=== PATIENT | male | born 1950 | race African-American/Black ===

== ENCOUNTER 2018-10-14 12:38 | Inpatient (IN) | payer OTHER ==
[~2018-10-14] VITALS: Ht 182.9 cm; Wt 117.9 kg
[2018-10-14 13:32] LABS: BASOPHILS % 0.4 % (0.0-2.0); EOSINOPHILS % 4.5 % (0.0-5.0); HEMATOCRIT. 47.9 % (42.0-52.0); HEMOGLOBIN. 15.7 g/dL (14.0-18.0); MEAN CORPUSCULAR HEMOGLOBIN 30.3 pg (28.0-32.0); MEAN CORPUSCULAR VOLUME 92.3 fL (80.0-94.0); MEAN PLATELET VOLUME 8.4 fl (7.4-10.4); MONOCYTES % 13.3 % (2.0-8.0); NEUTROPHILS % 41.8 % (40.0-76.0); PLATELET 253 x1000/uL (130-400); RED BLOOD CELL COUNT 5.19 mill/uL (4.7-6.1); RED CELL DISTRIBUTION WIDTH 15.1 % (11.6-14.6)
[2018-10-14 13:38] LABS: CHLORIDE 106 mEq/L (98-107)
[2018-10-14 13:39] LABS: INR 1.1; PROTHROMBIN TIME 10.7 sec (9.1-11.1)
[2018-10-14] MEDS ORDERED: ASPIRIN 81MG TABLET PO NR (14:15)
[2018-10-15] MEDS ORDERED: CLONIDINE 0.1MG TABLET PO SCH ×2 (15:45→22:00)
[2018-10-15] MEDS ORDERED: IPRATROPIUM/ALBUTEROL 0.5-3(2.5)MG/3ML NEB INH PRN (16:15)
[2018-10-15] MEDS ORDERED: HYDROCODONE/ACETAMINOPHEN 5/325MG TABLET PO PRN (16:15)
[2018-10-15] MEDS ORDERED: CLONIDINE 0.1MG TABLET PO PRN (16:15)
[2018-10-15] MEDS ORDERED: ONDANSETRON HCL 4MG/2ML INJ IV PRN (16:15)
[2018-10-15] MEDS ORDERED: ACETAMINOPHEN 325MG TABLET PO PRN (16:15)
[2018-10-15] MEDS: LOSARTAN POTASSIUM 50 MG TABLET PO SCH (17:19)
[2018-10-15] MEDS: ENOXAPARIN 30MG/0.3ML SYR SUBCUT SCH (17:19)
[2018-10-15 20:00] VITALS: BP_SYST 184; BP_SYST 190; BP_DIAS 111; BP_DIAS 150
[2018-10-15 20:37] VITALS: BP 163/103
[2018-10-16] VITALS: BP 148/86
[2018-10-16 04:00] VITALS: BP 117/44
[2018-10-16 06:52] LABS: BASOPHILS % 0.4 % (0.0-2.0); EOSINOPHILS % 4.6 % (0.0-5.0); HEMATOCRIT. 44.1 % (42.0-52.0); HEMOGLOBIN. 14.6 g/dL (14.0-18.0); LYMPHOCYTES % 45.6 % (20.0-50.0); MEAN CORPUSCULAR HEMOGLOBIN 30.6 pg (28.0-32.0); MEAN CORPUSCULAR VOLUME 92.5 fL (80.0-94.0); MEAN PLATELET VOLUME 8.5 fl (7.4-10.4); MONOCYTES % 11.8 % (2.0-8.0); NEUTROPHILS % 37.6 % (40.0-76.0); PLATELET 213 x1000/uL (130-400); RED BLOOD CELL COUNT 4.77 mill/uL (4.7-6.1); RED CELL DISTRIBUTION WIDTH 14.6 % (11.6-14.6)
[2018-10-16 06:59] LABS: CHLORIDE 108 mEq/L (98-107)
[2018-10-16 07:17] LABS: HDL CHOLESTEROL 31 mg/dL (40-59)
[2018-10-16 07:19] LABS: CREATINE KINASE 433 IU/L (39-308); LDL CHOLESTEROL 142 mg/dL (5-100); T4 FREE 0.84 ng/dL (0.76-1.46)
[2018-10-16 08:00] VITALS: BP 157/102
[2018-10-16] MEDS: ENOXAPARIN 30MG/0.3ML SYR SUBCUT SCH ×2 (09:12→20:31)
[2018-10-16] MEDS: LOSARTAN POTASSIUM 50 MG TABLET PO SCH (09:12)
[2018-10-16] MEDS: ASPIRIN 81MG EC TABLET PO SCH (09:12)
[2018-10-16 12:00] VITALS: BP 161/89
[2018-10-16] MEDS: CLONIDINE 0.2MG TABLET PO PRN ×2 (12:15→20:28)
[2018-10-16] MEDS ORDERED: REGADENOSON 0.4 MG/5 ML IV ONE (14:15)
[2018-10-16] MEDS: METOPROLOL TARTRATE 25MG TABLET PO SCH ×2 (14:42→23:56)
[2018-10-16 16:21] VITALS: BP 140/95
[2018-10-16 16:41] LABS: *AMPHETAMINES SCREEN URINE NEGATIVE (NEGATIVE); *BARBITURATES SCREEN URINE NEGATIVE (NEGATIVE); *BENZODIAZEPINES SCREEN URINE NEGATIVE (NEGATIVE); *COCAINE SCREEN URINE NEGATIVE (NEGATIVE); METHADONE URINE SCREEN NEGATIVE (NEGATIVE)
[2018-10-16 16:42] LABS: CANNABINOID URINE SCREEN NEGATIVE (NEGATIVE); OPIATES URINE SCREEN NEGATIVE (NEGATIVE); PHENCYCLIDINE URINE SCREEN NEGATIVE (NEGATIVE)
[2018-10-16 20:00] VITALS: BP 162/97
[2018-10-16] MEDS ORDERED: ATORVASTATIN CALCIUM 20MG TABLET PO SCH (21:00)
[2018-10-17] VITALS: BP 145/94
[2018-10-17] MEDS ORDERED: DEXT 5%/0.45% NACL 1000ML 1,000 ML IV SCH
[2018-10-17 04:00] VITALS: BP 137/99
[2018-10-17 06:28] LABS: BASOPHILS % 0.4 % (0.0-2.0); EOSINOPHILS % 4.2 % (0.0-5.0); HEMATOCRIT. 45.4 % (42.0-52.0); LYMPHOCYTES % 44.9 % (20.0-50.0); MEAN CORPUSCULAR HEMOGLOBIN 30.7 pg (28.0-32.0); MEAN CORPUSCULAR VOLUME 92.9 fL (80.0-94.0); MONOCYTES % 10.6 % (2.0-8.0); NEUTROPHILS % 39.9 % (40.0-76.0); PLATELET 215 x1000/uL (130-400); RED BLOOD CELL COUNT 4.89 mill/uL (4.7-6.1); RED CELL DISTRIBUTION WIDTH 14.8 % (11.6-14.6)
[2018-10-17 07:43] LABS: CHLORIDE 106 mEq/L (98-107)
[2018-10-17] MEDS: ASPIRIN 81MG EC TABLET PO SCH ×2 (07:52→10:31)
[2018-10-17] MEDS: METOPROLOL TARTRATE 25MG TABLET PO SCH ×2 (07:52→10:30)
[2018-10-17] MEDS: LOSARTAN POTASSIUM 50 MG TABLET PO SCH ×2 (07:53→10:30)
[2018-10-17 08:00] VITALS: BP 150/92
[2018-10-17] MEDS ORDERED: REGADENOSON 0.4 MG/5 ML IV ONE (08:51)
[2018-10-17] MEDS: ENOXAPARIN 30MG/0.3ML SYR SUBCUT SCH (10:31)
[2018-10-17 12:00] VITALS: BP 149/95
[2018-10-17 12:37] VITALS: BP 149/95
== END 2018-10-17 13:25 | disposition home or self-care (01) | DRG 280 ==
LOC: ER 12:38 → ENRESERV 10-15 13:29 → 8WST 10-15 14:37
PROVIDERS: ADMIT Internal Medicine; ATTEND Internal Medicine
DX: I21.4 Non-ST elevation (NSTEMI) myocardial infarction (principal); I50.33 Acute on chronic diastolic (congestive) heart failure; N17.9 Acute kidney failure, unspecified; D68.59 Other primary thrombophilia; I16.0 Hypertensive urgency; F17.210 Nicotine dependence, cigarettes, uncomplicated; E11.9 Type 2 diabetes mellitus without complications; E78.00 Pure hypercholesterolemia, unspecified; E78.5 Hyperlipidemia, unspecified; I11.0 Hypertensive heart disease with heart failure; Z82.0 Family history of epilepsy and other diseases of the nervous system
CPT/HCPCS: 36415; 71045; 78452; 80048; 80061; 80305; 82550; 83036; 83735; 83880; 84439; 84481; 84484; 93005; 93017; 93306; 93970; 96372; 97162; 99285; A9500; J1650; J2785